=== PATIENT | female | born 1950 | race Caucasian/White ===

== ENCOUNTER 2018-11-21 23:12 | Emergency (ER) | payer OTHER, BC ==
[~2018-11-21] VITALS: Ht 162.6 cm; Wt 54.4 kg
[2018-11-21 23:56] VITALS: Ht 162.6 cm; Wt 54.4 kg
[2018-11-22 01:29] LABS: BASOPHIL % 0.4 % (0-2); PLATELET COUNT 170 x10^3mcL (130-400); RED CELL DISTRIBUTION WIDTH 13.2 % (11.5-14.5)
[2018-11-22 01:32] LABS: CALCIUM 9.3 mg/dL (8.5-10.1); CARBON DIOXIDE 27.6 mmol/L (21-32); CREATININE SERUM 1.1 mg/dL (0.6-1.0); POTASSIUM SERUM 4.5 mmol/L (3.5-5.1)
[2018-11-22 01:39] LABS: ALBUMIN 3.9 g/dL (3.4-5.0); BILIRUBIN TOTAL 0.7 mg/dL (0.20-1.00); TOTAL PROTEIN, SERUM 7.3 g/dL (6.4-8.2)
[2018-11-22 02:19] LABS: microscopic required? YES
[2018-11-22 02:20] LABS: urine erythrocyte NEGATIVE (NEGATIVE)
[2018-11-22 02:45] VITALS: BP 143/83
== END 2018-11-22 02:45 | disposition home or self-care (01) ==
LOC: ED 23:12
PROVIDERS: Emergency Medicine
DX: N23 Unspecified renal colic (principal); N39.0 Urinary tract infection, site not specified; Z88.5 Allergy status to narcotic agent; Z88.0 Allergy status to penicillin
CPT/HCPCS: 36415; J1885; J7030